=== PATIENT | female | born 1990 | race Caucasian/White ===

== ENCOUNTER 2018-03-19 16:38 | Inpatient (IN) | payer BC ==
[~2018-03-19] VITALS: Ht 163.8 cm; Wt 91.2 kg
[~2018-03-19 16:38] MED LIST: Benzocaine 60 ML TP; DOCU240C67 PO; IBUP800T37 PO; Lanolin TP; TUCKS TP
[2018-03-19] MEDS ORDERED: LR(*) 1000 ML BAG 1,000 ML IV PRN (16:39)
[2018-03-19 17:10] VITALS: BP 120/72; Ht 163.8 cm; Wt 91.2 kg
[2018-03-19] MEDS ORDERED: OXYTOCIN 30 UNIT/D5LR 500 ML 500 ML IV PRN (17:16)
[2018-03-19] MEDS ORDERED: FAMOTIDINE(*) 20MG/50ML PREMIX 50 ML IVPB PRN (17:16)
[2018-03-19] MEDS ORDERED: LIDO/EPI 2% MPF 1:200,000 20ML EPI PRN (17:20)
[2018-03-19] MEDS ORDERED: LIDOCAINE/SOD BICARB 8.4% SYR SC PRN (17:20)
[2018-03-19] MEDS ORDERED: METOCLOPRAMIDE 10 MG/2 ML SDV IVP PRN (17:20)
[2018-03-19] MEDS ORDERED: FENTANYL/ROPIVACAINE 100 ML BAG EPI PRN (17:20)
[2018-03-19] MEDS ORDERED: FLUSH 10 ML SYR IVP PRN (17:20)
[2018-03-19] MEDS ORDERED: fentaNYL CITR 100 MCG/2 ML AMP IT PRN (17:20)
[2018-03-19] MEDS ORDERED: fentaNYL CITR 100 MCG/2 ML AMP IVP PRN (17:20)
[2018-03-19] MEDS ORDERED: BUPIVACAINE 0.25% MPF INJ EPI PRN (17:20)
[2018-03-19] MEDS ORDERED: LIDOCAINE/PF 2% 200MG/10ML AMP 200 MG/10 ML AMPUL EPI PRN (17:20)
[2018-03-19] MEDS ORDERED: LIDOCAINE 1% LOCAL 300 MG/30ML INJ PRN (17:20)
[2018-03-19] MEDS ORDERED: BUPIVACAINE 0.5% INJ 30ML VIAL EPI PRN (17:20)
[2018-03-19] MEDS ORDERED: EPIDURAL KEYS XX PRN (17:30)
[2018-03-19 17:49] LABS: PLATELET COUNT, AUTOMATED 200 K/uL (150-450)
[2018-03-19] MEDS ORDERED: CALCIUM CARBONATE 500 MG CHEW PO PRN (19:05)
[2018-03-19] MEDS ORDERED: HYDROCORTISONE 2.5% CR 30GM TB PR PRN (20:10)
[2018-03-19] MEDS ORDERED: INFLUENZA VIRUS VAC 0.5 ML SYR IM ONLY ONE (20:10)
[2018-03-19] MEDS ORDERED: APAP/HYDROCODONE 325/5 TAB PO PRN (20:10)
[2018-03-19] MEDS ORDERED: ACETAMINOPHEN 325 MG TAB PO PRN (20:10)
[2018-03-19] MEDS ORDERED: BENZOCAINE 20% 60 ML BTL TP PRN (20:10)
[2018-03-19] MEDS ORDERED: MAGNESIUM HYDROXIDE* 30ML UDCP PO PRN (20:10)
[2018-03-19] MEDS ORDERED: LANOLIN OINT 7 GM TUBE TP PRN (20:10)
[2018-03-19] MEDS ORDERED: GLYCERIN/WITCH HAZEL LEAF 1 PK TOP PRN (20:10)
--- NOTE | 2018-03-19 20:16 | OB Delivery Note ---
Delivery Note Vaginal Delivery Type: Spont. Vaginal Delivery Delivery Date: Mar 19, 2018 Delivery Time: 19:53 Estimated Gestational Age(wks): 38.4 Infant Sex: Male [place] Apgars: 1 Minute (9), 5 Minute (10) Estimated Blood Loss: 300 Notes: Presented in labor at 7 cm. Progressed naturally to complete and +2 station. Pushing effectively, brought head to in SONIA position. Perineum stabilized while head delivered over intact perineum. No lacerations. Shoulders delivered spontaneously and placenta delivered spontaneously and intact. Photogrammetric Stereo Compiler in Attendence: No Copies to: ROLA HARDY MD ; ROLA HARDY MD Mar 19, 2018 20:16
[2018-03-19] MEDS: IBUPROFEN 800 MG TAB PO SCH (21:42)
[2018-03-19] MEDS: DOCUSATE CALCIUM 240 MG CAP PO SCH (21:42)
[2018-03-19 21:45] VITALS: BP 115/65
[2018-03-19 21:57] VITALS: BP 101/58
[2018-03-20 03:40] VITALS: BP 107/59
[2018-03-20] MEDS: IBUPROFEN 800 MG TAB PO SCH ×2 (05:13→14:03)
[2018-03-20 08:00] VITALS: BP 109/64
[2018-03-20 08:25] VITALS: BP 109/64
[2018-03-20] MEDS: DOCUSATE CALCIUM 240 MG CAP PO SCH ×2 (10:09→21:46)
[2018-03-20 11:30] VITALS: BP 117/65
--- NOTE | 2018-03-20 12:32 | OB/GYN Progress Note ---
OB Subjective Progress Notes Subjective Pain controlled, Tolerating diet and activity. Baby . Normal lochia. OB Objective Physical Exam Vital Signs Date Time Temp Pulse Resp B/P (MAP) Pulse Ox O2 Delivery O2 Flow Rate FiO2 03/20/18 08:25 97.1 83 17 109/64 (79) 03/20/18 08:00 Room Air Intake and Output 03/20/18 07:00 Intake Total 650 ml Output Total 820 ml Balance -170 ml IV Total 650 ml Output Urine Total 600 ml Estimated Blood Loss 220 ml # Voids 1 Cardiovascular: Regular Rate and Rhythm Respiratory: Clear to Auscultation Abdomen: Fundus Firm Extremities: No Edema Result Diagram: 03/20/18 0622 Assessment and Plan Problems: (1) care and examination immediately after delivery Status: Acute Assessment & Plan: Pain controlled, Tolerating diet and activity. Baby . Normal lochia. ELSA MEDINA MD Mar 20, 2018 12:32
[2018-03-20] MEDS ORDERED: IBUP800T37 PO (12:33)
[2018-03-20] MEDS ORDERED: HYDR2TAB4 PO (12:33)
--- NOTE | 2018-03-20 12:35 | OB/GYN Discharge Summary ---
Discharge Summary Reason for Hosp/Final Diag: (1) care and examination immediately after delivery Status: Acute Hospital Course & Plan: vag delivery on day 1. Pain controlled, Tolerating diet and activity. Baby . Normal lochia. Lates Vital Signs Vital Signs Date Time Temp Pulse Resp B/P (MAP) Pulse Ox O2 Delivery O2 Flow Rate FiO2 03/20/18 08:25 97.1 83 17 109/64 (79) 03/20/18 08:00 Room Air Weight (Pounds): 201 Result Diagram: 03/20/18 06 Condition: Improved Discharge: Home, Self Shelter Meds Active Scripts Ibuprofen (IBUPROFEN) 800 Mg Tablet, 1 TAB PO Q8H, #30 TAB 0 Refills Take with food every 8 hours. Prov:ELSA MEDINA MD 03/20/18 Hydromorphone Hcl (HYDROMORPHONE HCL) 2 Mg Tablet, 2 MG PO Q4H for PAIN, #20 TAB 0 Refills Prov:ELSA MEDINA MD 03/20/18 [Lanolin] 7 GM OINT No Conflict Check, 0 GM TP PRN PRN for DISCOMFORT FOR NURSING MOTHERS, TUBE Prov:GAMALIEL HUTTON MD 06/06/16 Ibuprofen (IBUPROFEN) 800 Mg Tablet, 800 MG PO Q8H for 10 Days, TAB Prov:GAMALIEL HUTTON MD 06/06/16 Glycerin/Witch Lydia Manns Choice (PREPARATION H) 1 Pkg Pad, 0 PKG TP PRN PRN for PAIN for 10 Days, PAD Prov:GAMALIEL HUTTON MD 06/06/16 Docusate Calcium (DOCUSATE CALCIUM) 240 Mg Capsule, 240 MG PO BID for 10 Days, CAPSULE Prov:GAMALIEL HUTTON MD 06/06/16 [Benzocaine] 60 ML AERS No Conflict Check, 0 ML TP PRN PRN for PAIN for 10 Days Prov:GAMALIEL HUTTON MD 06/06/16 [facility] [phone] Follow up in: 6 wks PP or PO Discharge Diet: As Tolerates Discharge Activity: Pelvic Rest Copies to: ELSA MEDINA MD ; ELSA MEDINA MD Mar 20, 2018 12:35
[2018-03-20 16:30] VITALS: BP 107/64
[2018-03-20 19:54] VITALS: BP 113/65
[2018-03-20] MEDS ORDERED: IBUPROFEN 800 MG TAB PO SCH (22:00)
[2018-03-21] MEDS ORDERED: MEASLES,MUMP,RUBELLA VAC 0.5ML SUBQ ONE (09:00)
[2018-03-21] MEDS ORDERED: DIPHTH/TETANUS/ACEL. PERTUSSIS IM ONLY ONE (09:00)
== END 2018-03-20 22:15 | disposition home or self-care (01) | DRG 775 ==
LOC: OB 16:38
PROVIDERS: ADMIT Obstetrics & Gynecology; ATTEND Obstetrics & Gynecology
PROC: 10E0XZZ Delivery of Products of Conception, External Approach (ICD-10-PCS; principal; 2018-03-19)
DX: O99.52 Diseases of the respiratory system complicating childbirth (principal); J45.909 Unspecified asthma, uncomplicated; Z3A.38 38 weeks gestation of pregnancy; Z37.0 Single live birth
CPT/HCPCS: 36415; 85025; 85027; 86850; 86900; 86901; J7120

== ENCOUNTER 2019-01-20 18:54 | Day surgery (SDC) | payer BC ==
[2018-03-19 17:10] VITALS: Wt 81.2 kg
[~2019-01-20 18:54] MED LIST changes: +HYDR2TAB4 PO
--- NOTE | 2019-01-20 19:07 | ER Report ---
History and Physical Time Seen By MD: 19:06 Hx. of Stated Complaint: PATIENT REPORTS SMALL PILL STUCK IN THROAT ABOUT 2 HOURS PRIOR HPI/ROS CHIEF COMPLAINT: Pill stuck in throat HISTORY OF PRESENT ILLNESS: 28-year-old female patient presents to emergency room with complaint of a pill stuck in her throat. Patient states that she has is occur frequently. She states she took an ibuprofen 2 hours prior to coming to the emergency room. She states that she felt the pill gets stuck in her throat. She has tried drinking warm water, cold water, warm milk cold milk and feels she is not able to pass it. She states she's not able to swallow her own saliva. She denies any difficulty breathing, fevers, chills, nausea, vomiting or diarrhea. Patient states that this happened in the past but has always been able to clear it at that time. REVIEW OF SYSTEMS: Respiratory: No cough, no dyspnea. Cardiovascular: No chest pain, no palpitations. Gastrointestinal: As noted above Musculoskeletal: No back pain. Allergies: Coded Allergies: No Known Drug Allergies (Unverified , 01/20/19) Home Meds Reported Medications Albuterol Sulfate 90 Mcg/Act (PROAIR HFA 90 MCG/ACT) 8.5 Gm Hfa.aer.ad, 1-2 PUFF IH 3-4XD PRN for SHORTNESS OF BREATH, INHALER 01/20/19 Discontinued Scripts Ibuprofen (IBUPROFEN) 800 Mg Tablet, 1 TAB PO Q8H, #30 TAB 0 Refills Take with food every 8 hours. Prov:ELSA MEDINA MD 03/20/18 Hydromorphone Hcl (HYDROMORPHONE HCL) 2 Mg Tablet, 2 MG PO Q4H for PAIN, #20 TAB 0 Refills Prov:ELSA MEDINA MD 03/20/18 Docusate Calcium (DOCUSATE CALCIUM) 240 Mg Capsule, 240 MG PO BID for 10 Days, CAPSULE Prov:GAMALIEL HUTTON MD 06/06/16 Past Medical/Surgical History Patient has a past medical history of asthma, things frequently getting stuck in her throat. Patient denies any surgical history. Reviewed Nurses Notes: Yes Hx Smoking: No Smoking Status: Former Smoker Exposure to Second Hand Smoke?: No Constitutional Vital Sign - Last 24 Hours 01/20/19 01/20/19 01/20/19 01/20/19 18:54 19:00 19:01 19:24 Temp 98.0 Pulse ??? 84 73 Resp 16 B/P (MAP) 114/85 (95) 114/85 Pulse Ox 93 93 O2 Delivery Room Air 01/20/19 01/20/19 01/20/19 01/20/19 19:30 19:54 20:00 20:24 Pulse 80 87 B/P (MAP) 100/67 (78) 110/78 (89) Pulse Ox 93 94 01/20/19 01/20/19 01/20/19 20:30 21:00 21:30 B/P (MAP) 105/73 (84) 125/113 (117) 111/68 (82) Physical Exam General Appearance: The patient is alert, has no immediate need for airway protection and no current signs of toxicity. Respiratory: Chest is non tender, lungs are clear to auscultation. Cardiac: regular rate and rhythm Gastrointestinal: Abdomen is soft and non tender, no masses, bowel sounds normal. Musculoskeletal: Neck: Neck is supple and non tender. Extremities have full range of motion and are non tender. Skin: No rashes or lesions. DIFFERENTIAL DIAGNOSIS: After history and physical exam differential diagnosis was considered for a pill stuck in her throat, inflammation, inability to swallow. Medical Decision Making Data Points Laboratory Hematology Test 01/20/19 20:06 Human Chorionic Gonadotropin, Qual Negative (NEGATIVE) Chemistry Test 01/20/19 20:06 Human Chorionic Gonadotropin, Qual Negative (NEGATIVE) ED Course/Re-evaluation ED Course Patient was admitted to an exam room, history and physical were obtained. Differential diagnoses were considered. On examination lungs are clear, heart is regular. Patient was unable to swallow her saliva while in the room. An IV was started and patient was given 1 mg of glucagon. At that time we did wait approximately 20 minutes, we then trialed her with some cold. She vomited it up immediately. We then gave her 1 mg of Ativan. We continue to watch her for 20 minutes and then gave her more cold to drink. She was unable to keep that down and vomited up immediately as well. With this being a pill I did attempt to use a GI cocktail, consisting of viscous lidocaine and Maalox. She was able swallow that down, but vomited it up immediately again. At that time I did talk with Dr. Lala, general surgeon. We discussed the case and the difficulty the patient was having swallowing anything. He did decide to come in and he will take her to surgery and possibly do an EGD to remove it. I discussed the patient verbalized understanding and agreed with plan. Decision to Disposition Date: Jan 20, 2019 Decision to Disposition Time: 21:18 Depart Departure Latest Vital Signs Vital Signs Date Time Temp Pulse Resp B/P (MAP) Pulse Ox O2 Delivery O2 Flow Rate FiO2 01/20/19 21:30 111/68 (82) 01/20/19 20:24 87 94 01/20/19 19:01 98.0 16 Room Air Impression: Primary Impression: Pill dysphagia Condition: Condition Unchanged Disposition: ADMIT FROM ER TO OR KEAGAN SON Jan 20, 2019 19:07
[2019-01-20] MEDS ORDERED: ALBU8.5H IH (19:08)
[2019-01-20] MEDS ORDERED: GLUCAGON 1 MG KIT IM ONE (19:15)
[2019-01-20] MEDS ORDERED: GLUCAGON 1 MG KIT IV ONE (20:15)
[2019-01-20] MEDS ORDERED: LORazepam 2 MG/ML VIAL IVP ONE (20:40)
[2019-01-20] MEDS ORDERED: LIDOCAINE 2% VISC SLN 15ML UDC PO ONE (21:05)
[2019-01-20] MEDS ORDERED: MAG HYD/AL HYD/SIMETH 30ML UDC PO ONE (21:05)
[2019-01-20 21:30] VITALS: BP 111/68
[2019-01-20] MEDS ORDERED: NORMOSOL R SOLN(*) 1000 ML BAG 1,000 ML IV ONE (21:42)
[2019-01-20] MEDS ORDERED: fentaNYL CITR 100 MCG/2 ML AMP ONE (21:47)
[2019-01-20] MEDS ORDERED: MIDAZOLAM 2 MG/2 ML VIAL ONE (21:48)
[2019-01-20] MEDS ORDERED: PROPOFOL EMUL(*) 10MG/ML 20 ML 20 ML ONE (21:49)
[2019-01-20] MEDS ORDERED: ONDANSETRON 4 MG/2 ML VIAL ONE (21:49)
[2019-01-20] MEDS ORDERED: DEXAMETHASONE SOD PHOS 10MG/ML ONE (21:49)
[2019-01-20] MEDS ORDERED: LIDOCAINE MPF 1% 5 ML VIAL ONE ×2 (21:49)
[2019-01-20] MEDS ORDERED: ePHEDrine 25 MG/5 ML DISP.SYR IVP ONE (22:26)
--- NOTE | 2019-01-20 22:45 | Short(Outpt) Discharge Summary ---
Discharge Summary Reason for Hosp/Final Diag: (1) Pill dysphagia Status: Acute Hospital Course & Plan: pt presented with ibuprofen tablet stuck in esoph. she underwent upper endoscopy and fb removal. she will be discharged home when criteria met. Departure Discharge to: Home Discharge Instructions Home Meds Active Scripts Ibuprofen (IBUPROFEN) 800 Mg Tablet, 1 TAB PO Q8H, #30 TAB 0 Refills Take with food every 8 hours. Prov:ELSA MEDINA MD 03/20/18 Reported Medications Albuterol Sulfate 90 Mcg/Act (PROAIR HFA 90 MCG/ACT) 8.5 Gm Hfa.aer.ad, 1-2 PUFF IH 3-4XD PRN for SHORTNESS OF BREATH, INHALER 01/20/19 Discontinued Scripts Hydromorphone Hcl (HYDROMORPHONE HCL) 2 Mg Tablet, 2 MG PO Q4H for PAIN, #20 TAB 0 Refills Prov:ELSA MEDINA MD 03/20/18 Docusate Calcium (DOCUSATE CALCIUM) 240 Mg Capsule, 240 MG PO BID for 10 Days, CAPSULE Prov:GAMALIEL HUTTON MD 06/06/16 Diet: Regular Activity: As Tolerated Special Instructions: chew food well. be very careful with meat, bread, and pills. NABIL DIXON Jan 20, 2019 22:45
[2019-01-20] MEDS ORDERED: PROMETHAZINE 25 MG/ML 1 ML AMP ONE (23:05)
--- NOTE | 2019-01-21 07:10 | OPERATIVE REPORT 1 ---
EVENT DATE: January 20, 2019 SURGEON: Grover Lala MD ANESTHESIOLOGIST: Frankie Browning MD ANESTHESIA: General. PAPER COATER: None. PREOPERATIVE DIAGNOSIS Foreign body stuck in esophagus. POSTOPERATIVE DIAGNOSIS Foreign body stuck in esophagus. PROCEDURE PERFORMED Upper endoscopy through the esophagus into the stomach and foreign body removal. FLUIDS IV crystalloid. ESTIMATED BLOOD LOSS None. SPECIMENS None. COMPLICATIONS None. INDICATIONS This is a 28-year old female with a long history of dysphagia. She presented to the emergency department after swallowing an ibuprofen tablet and having it get stuck in her esophagus. She was unable to swallow even her saliva. Risks and benefits of the procedure were explained and consent was signed. DESCRIPTION OF PROCEDURE Patient was taken to the GI Suite and placed in the supine position. General anesthesia was administered per the Anesthesia team. The bite block was placed. The gastroscope was advanced through the oropharynx and into the proximal esophagus. The esophagus was so narrow that I was unable to advance the gastroscope. Therefore, I switched to a bronchoscope. The bronchoscope was passed down the esophagus. At the level of the mid esophagus, there was a tablet lodged in the esophagus. With irrigation and biopsy forceps, I was able to break through the tablet and all of this was washed into the stomach. There was mild irritation where the pill was lodged. The entire esophagus was narrow with the exception of the very distal aspect where there appeared to be a more normal caliber. The bronchoscope was withdrawn. The patient tolerated the procedure well and there were no complications. [facility]
--- NOTE | 2019-01-27 06:44 | Miscellaneous Provider Note ---
Miscellaneous Provider Note Note spoke with gi. discussed possibility of eosinophilic esophagitis causing narrow esoph. will call in fluticasone treatment. NABIL DIXON Jan 27, 2019 06:44
== END 2019-01-20 23:45 | disposition home or self-care (01) ==
LOC: ER 19:14 → OR 21:38
PROVIDERS: ATTEND Surgery
DX: R13.19 Other dysphagia (principal)
CPT/HCPCS: 43247; 84703; 96372; 96374; 99284; J1100; J1610; J2001; J2060; J2250; J2405; J2704; J3010